=== PATIENT | female | born 1985 ===

== ENCOUNTER 2018-05-22 06:05 | Inpatient (IN) ==
[2018-05-22] MEDS ORDERED: FAMOTIDINE 20 MG/2 ML VIAL IV ONE (06:17)
[2018-05-22] MEDS ORDERED: CITRIC ACID/SODIUM CITRATE 30 ML UDCUP PO ONE (06:17)
[2018-05-22] MEDS ORDERED: ceFAZolin 2,000 MG in PREMIX 1 EACH IV ONE (06:17)
[2018-05-22 06:33] LABS: Basophils % 0.2 % (0.0-0.8); Eosinophils # 0.1 10*3/uL (0.0-0.87); Eosinophils % 0.9 % (0.00-10.9); Hematocrit 37.2 VOL% (35.7-47.0); Hemoglobin 11.7 GM/DL (12.0-16.0); Immature Granulocytes % 0.6 %; Immature Granulocytes Absolute 0.03 #; Lymphocytes # 1.5 10*3/uL (1.4-4.0); Lymphocytes % 27.8 % (21.3-54.2); Mean Corpuscular HGB Conc 31.5 GM/DL (32-36); Mean Corpuscular Hemoglobin 29 PG (27-34); Mean Platelet Volume 10.3 FL (9.6-12.0); Monocytes # 0.6 10*3/uL (0.11-0.8); Neutrophils # 3.2 10*3/uL (1.4-7.4); Neutrophils % 59.5 % (38.7-73.9); Platelet Count 236 T/CUMM (130-400); Red Blood Count 4.09 MC/CUMM (3.8-5.5); Red Cell Distribution Width 14.6 % (9.3-17.3); White Blood Count 5.3 T/CUMM (4-12)
[2018-05-22] MEDS: LACTATED RINGERS 1,000 ML IV SCH ×2 (07:01→08:26)
[2018-05-22] MEDS ORDERED: OXYTOCIN 10 UNIT/ML VIAL IM ONE (07:05)
[2018-05-22] MEDS ORDERED: OXYTOCIN/LR 30 UNIT/1,000 ML BAG IV ONE (07:05)
[2018-05-22] MEDS ORDERED: ACETAMINOPHEN 325 MG TABLET PO PRN (10:41)
[2018-05-22] MEDS ORDERED: SIMETHICONE CHEW 80 MG TABLET PO PRN (10:41)
[2018-05-22] MEDS ORDERED: RHO(D) IMMUNE GLOBULIN 300 MCG SYRINGE IM ONE (10:41)
[2018-05-22] MEDS ORDERED: ONDANSETRON 4 MG/2 ML VIAL IV PRN (10:41)
[2018-05-22] MEDS ORDERED: DEXTROSE 50% 25 GM/50 ML VIAL IV PRN ×3 (10:41→18:35)
[2018-05-22] MEDS ORDERED: GLUCAGON 1 MG VIAL IM PRN ×3 (10:41→18:35)
[2018-05-22] MEDS ORDERED: OXYTOCIN/LR 20 UNIT/1,000 ML BAG IV ONE (10:41)
[2018-05-22] MEDS ORDERED: fentaNYL 100 MCG/2 ML VIAL ONE (10:46)
[2018-05-22] MEDS ORDERED: MORPHINE 10 MG/10 ML VIAL ONE (10:46)
[2018-05-22] MEDS ORDERED: PHENYLEPHRINE 1 MG/10 ML SYRINGE IV ONE (10:48)
[2018-05-22] MEDS ORDERED: BUPIVACAINE SPINAL 0.75% 2 ML AMP SPINAL ONE (10:49)
[2018-05-22] MEDS ORDERED: MIDAZOLAM 2 MG/2 ML VIAL ONE (10:49)
[2018-05-22 10:55] LABS: Cord Venous Blood PCO2 32.5 MMHG; Cord Venous Blood PO2 32.7 MMHG
[2018-05-22] MEDS ORDERED: LACTATED RINGERS 1,000 ML IV SCH (11:00)
[2018-05-22 11:06] LABS: Apearance,Urine CLEAR (Clear); Bacteria,Urine Occasional /HPF (Few); Bilirubin,Urine Negative (Negative); Blood, Urine Negative (Negative); Glucose,Urine (UA) Negative (Negative); Ketones,Urine Negative (Negative); Mucus,Urine Occasional /LPF (Occasional); Nitrite,Urine Negative (Negative); Protein,Urine Negative; RBC,Urine 1 /HPF (0-4); Squamous Epithelial Cell,Urine Occasional /HPF (0-10); Urine Color Yellow (Yellow); Urine Specific Gravity 1.006 (1.001-1.035); WBC,Urine <1 /HPF (0-6)
[2018-05-22] MEDS ORDERED: HYDROmorphone 2 MG/1 ML VIAL IV PRN (12:55)
[2018-05-22] MEDS ORDERED: SODIUM CHLORIDE 0.9% 50 ML IV ONE (16:39)
[2018-05-22] MEDS: ceFAZolin 1,000 MG in SYRINGE 1 EACH IV SCH (16:46)
[2018-05-22 18:21] LABS: Basophils % 0.2 % (0.0-0.8); Eosinophils % 0.5 % (0.00-10.9); Hemoglobin 8.9 GM/DL (12.0-16.0); Immature Granulocytes % 0.5 %; Immature Granulocytes Absolute 0.04 #; Lymphocytes # 1.9 10*3/uL (1.4-4.0); Lymphocytes % 21.8 % (21.3-54.2); Mean Corpuscular HGB Conc 31.8 GM/DL (32-36); Mean Corpuscular Hemoglobin 29 PG (27-34); Mean Corpuscular Volume 90.6 FL (87-102); Mean Platelet Volume 10.3 FL (9.6-12.0); Monocytes # 0.8 10*3/uL (0.11-0.8); Monocytes % 8.5 % (1.7-12.7); Neutrophils # 6.1 10*3/uL (1.4-7.4); Neutrophils % 68.5 % (38.7-73.9); Platelet Count 182 T/CUMM (130-400); Red Blood Count 3.09 MC/CUMM (3.8-5.5); Red Cell Distribution Width 14.5 % (9.3-17.3); White Blood Count 8.9 T/CUMM (4-12)
[2018-05-22] MEDS: DOCUSATE SODIUM 100 MG CAPSULE PO SCH (20:57)
[2018-05-22] MEDS: FERROUS SULFATE 325 MG TABLET PO SCH (20:57)
[2018-05-23] MEDS: ceFAZolin 1,000 MG in SYRINGE 1 EACH IV SCH (01:19)
[2018-05-23] MEDS: IBUPROFEN 800 MG TABLET PO PRN (01:26)
[2018-05-23 07:37] LABS: Basophils % 0.1 % (0.0-0.8); Eosinophils # 0.1 10*3/uL (0.0-0.87); Eosinophils % 0.8 % (0.00-10.9); Hematocrit 26.3 VOL% (35.7-47.0); Hemoglobin 8.4 GM/DL (12.0-16.0); Immature Granulocytes % 0.4 %; Immature Granulocytes Absolute 0.03 #; Lymphocytes # 1.4 10*3/uL (1.4-4.0); Lymphocytes % 18.1 % (21.3-54.2); Mean Corpuscular HGB Conc 31.9 GM/DL (32-36); Mean Corpuscular Hemoglobin 29 PG (27-34); Mean Corpuscular Volume 89.8 FL (87-102); Mean Platelet Volume 10.4 FL (9.6-12.0); Monocytes # 0.8 10*3/uL (0.11-0.8); Monocytes % 10.2 % (1.7-12.7); Neutrophils # 5.2 10*3/uL (1.4-7.4); Neutrophils % 70.4 % (38.7-73.9); Platelet Count 155 T/CUMM (130-400); Red Blood Count 2.93 MC/CUMM (3.8-5.5); Red Cell Distribution Width 14.4 % (9.3-17.3); White Blood Count 7.4 T/CUMM (4-12)
[2018-05-23] MEDS: METOCLOPRAMIDE 10 MG TABLET PO SCH ×2 (08:52→15:54)
[2018-05-23] MEDS: MULTIVITAMIN (PRENATAL) TABLET PO SCH (08:53)
[2018-05-23] MEDS: FERROUS SULFATE 325 MG TABLET PO SCH ×2 (08:53→20:07)
[2018-05-23] MEDS: DOCUSATE SODIUM 100 MG CAPSULE PO SCH ×2 (08:53→20:08)
[2018-05-23] MEDS: MAGNESIUM HYDROXIDE SUSP 30 ML UDCUP PO PRN (20:07)
[2018-05-23] MEDS ORDERED: BISACODYL 10 MG SUPP RECTAL PRN (21:53)
[2018-05-24] MEDS: METOCLOPRAMIDE 10 MG TABLET PO SCH ×2 (00:14→09:16)
[2018-05-24] MEDS: IBUPROFEN 800 MG TABLET PO PRN (01:59)
[2018-05-24 07:47] VITALS: BP 104/62
[2018-05-24] MEDS ORDERED: DIPH/TET/ACEL PERT BOOSTER VACCINE 0.5 ML VIAL IM ONE (08:12)
[2018-05-24] MEDS: MULTIVITAMIN (PRENATAL) TABLET PO SCH (09:16)
[2018-05-24] MEDS: DOCUSATE SODIUM 100 MG CAPSULE PO SCH (09:16)
[2018-05-24] MEDS: MAGNESIUM HYDROXIDE SUSP 30 ML UDCUP PO PRN (09:16)
[2018-05-24] MEDS: FERROUS SULFATE 325 MG TABLET PO SCH (09:16)
== END 2018-05-24 13:00 | disposition home or self-care (01) | DRG 788 ==
LOC: N.LD 06:05 → N.OB 14:37
PROVIDERS: ADMIT Obstetrics & Gynecology; ATTEND Obstetrics & Gynecology
PROC: LDCSECT (ICD-10-PCS; 2018-05-22 09:00)

== ENCOUNTER 2020-11-24 00:06 | Inpatient (IN) ==
[2020-11-24 00:43] LABS: Bilirubin,Urine Negative (Negative); Blood, Urine Negative (Negative); Glucose,Urine (UA) Negative (Negative); Ketones,Urine Negative (Negative); Mucus,Urine Occasional /LPF (Occasional); Nitrite,Urine Negative (Negative); Protein,Urine Negative; RBC,Urine 1 /HPF (0-4); Squamous Epithelial Cell,Urine Occasional /HPF (0-10); Urine Appearance CLEAR (Clear); Urine Color Straw (Yellow); Urine Specific Gravity 1.006 (1.001-1.035); Urine Urobilinogen < 2.0 EU/DL (0.2-1.0)
[2020-11-24] MEDS: LACTATED RINGERS 1,000 ML IV SCH ×2 (01:37→10:48)
[2020-11-24] MEDS ORDERED: BUTORPHANOL 2 MG/ML VIAL ONE (01:52)
[2020-11-24] MEDS ORDERED: ONDANSETRON 4 MG/2 ML VIAL IV PRN ×2 (01:52→10:41)
[2020-11-24 01:54] LABS: Basophils % 0.1 % (0.0-0.8); Eosinophils # 0.1 10*3/uL (0.0-0.87); Eosinophils % 0.7 % (0.00-10.9); Hematocrit 36.7 VOL% (35.7-47.0); Hemoglobin 11.5 GM/DL (12.0-16.0); Immature Granulocytes % 0.5 %; Immature Granulocytes Absolute 0.04 #; Lymphocytes # 1.9 10*3/uL (1.4-4.0); Lymphocytes % 25.8 % (21.3-54.2); Mean Corpuscular HGB Conc 31.3 GM/DL (32-36); Mean Corpuscular Volume 89.3 FL (87-102); Mean Platelet Volume 10.9 FL (9.6-12.0); Monocytes % 10.3 % (1.7-12.7); Neutrophils % 62.6 % (38.7-73.9); Platelet Count 212 T/CUMM (130-400); Red Blood Count 4.11 MC/CUMM (3.8-5.5); Red Cell Distribution Width 14.3 % (9.3-17.3); White Blood Count 7.3 T/CUMM (4-12)
[2020-11-24] MEDS: BUTORPHANOL 2 MG/ML VIAL IV PRN ×2 (01:58→06:37)
[2020-11-24 02:05] LABS: INR 0.9; PT Patient Result 10.1 SECS (10.5-12.0); Partial Thromboplastin Time 25.6 SECS (23.9-33.8)
[2020-11-24 02:24] LABS: Alanine Aminotransferase < 9 U/L (13-56); Albumin 2.7 G/DL (3.4-5.0); Alkaline Phosphatase 389 U/L (45-117); Aspartate Amino Transferase 14 U/L (0-37); Blood Urea Nitrogen 10 MG/DL (7-18); Calcium 9.1 MG/DL (8.5-10.1); Carbon Dioxide 21 MMOL/L (21-32); Estimated Glom Filtration Rate 122 ML/MIN; Glucose 101 MG/DL (74-106); Osmolality,Calculated 275.5 MOS/KG (273-304); Potassium 4.1 MMOL/L (3.5-5.1); Sodium 139 MMOL/L (136-145); Total Protein 7.1 G/DL (6.4-8.2)
[2020-11-24] MEDS ORDERED: ALUMINUM/MAGNES/SIMETH MAX STR 30 ML UDCUP PO ONE (06:39)
[2020-11-24] MEDS ORDERED: OXYTOCIN/LR 30 UNIT/1,000 ML BAG IV ONE (07:38)
[2020-11-24] MEDS ORDERED: OXYTOCIN 10 UNIT/ML VIAL IM ONE (07:39)
[2020-11-24] MEDS ORDERED: CITRIC ACID/SODIUM CITRATE 30 ML UDCUP PO ONE ×2 (07:57→10:00)
[2020-11-24] MEDS ORDERED: FAMOTIDINE 20 MG/2 ML VIAL IV ONE ×2 (07:57→10:00)
[2020-11-24] MEDS ORDERED: ceFAZolin 2,000 MG/50 ML DUPLEX IV ONE ×2 (07:57→10:00)
[2020-11-24] MEDS ORDERED: TRANEXAMIC ACID 1,000 MG/10 ML VIAL ONE (08:16)
[2020-11-24] MEDS ORDERED: miSOPROStoL 200 MCG TABLET ONE (08:16)
[2020-11-24] MEDS ORDERED: METHYLERGONOVINE 0.2 MG/1 ML AMP ONE (08:18)
[2020-11-24] MEDS ORDERED: CARBOPROST TROMETHAMINE 250 MCG/ML AMP IM ONE (08:18)
[2020-11-24] MEDS ORDERED: SODIUM CHLORIDE 0.9% 0 ML IV ONE (08:18)
[2020-11-24] MEDS ORDERED: BUPIVACAINE SPINAL 0.75% 2 ML AMP SPINAL ONE (08:58)
[2020-11-24 10:23] LABS: Cord Arterial Blood HCO3 13.8 MMOL/L
[2020-11-24 10:26] LABS: Cord Venous Blood HCO3 16.1 MMOL/L; Cord Venous Blood PCO2 53.2 MMHG; Cord Venous Blood PO2 18.9
[2020-11-24] MEDS ORDERED: ePHEDrine 50 MG/ML VIAL ONE (10:26)
[2020-11-24] MEDS ORDERED: ONDANSETRON 4 MG/2 ML VIAL ONE (10:27)
[2020-11-24] MEDS ORDERED: METOCLOPRAMIDE 10 MG/2 ML VIAL ONE (10:27)
[2020-11-24] MEDS ORDERED: LACTATED RINGERS 2,000 ML IV ONE (10:27)
[2020-11-24 10:30] LABS: Bilirubin,Urine Negative (Negative); Blood, Urine Negative (Negative); Glucose,Urine (UA) Negative (Negative); Ketones,Urine Negative (Negative); Mucus,Urine Occasional /LPF (Occasional); Nitrite,Urine Negative (Negative); Protein,Urine Negative; Urine Appearance CLEAR (Clear); Urine Color Straw (Yellow); Urine Specific Gravity 1.006 (1.001-1.035); Urine Urobilinogen < 2.0 EU/DL (0.2-1.0)
[2020-11-24] MEDS ORDERED: MAGNESIUM HYDROXIDE SUSP 30 ML UDCUP PO PRN (10:41)
[2020-11-24] MEDS ORDERED: OXYTOCIN/LR 20 UNIT/1,000 ML BAG IV ONE (10:41)
[2020-11-24] MEDS ORDERED: GLUCAGON 1 MG VIAL IM PRN ×2 (10:41→11:49)
[2020-11-24] MEDS ORDERED: ACETAMINOPHEN 325 MG TABLET PO PRN (10:41)
[2020-11-24] MEDS ORDERED: RHO(D) IMMUNE GLOBULIN 300 MCG SYRINGE IM ONE (10:41)
[2020-11-24] MEDS ORDERED: DEXTROSE 50% 25 GM/50 ML VIAL IV PRN ×2 (10:41→11:49)
[2020-11-24] MEDS ORDERED: LACTATED RINGERS 1,000 ML IV SCH (11:00)
[2020-11-24] MEDS: INSULIN REGULAR 100 UNIT/ML SUBCUT SCH ×2 (13:18→18:50)
[2020-11-24] MEDS: ACETAMINOPHEN 500 MG TABLET PO SCH ×2 (13:30→18:27)
[2020-11-24] MEDS ORDERED: KETOROLAC 30 MG/1 ML VIAL IV SCH (14:00)
[2020-11-24] MEDS: SIMETHICONE CHEW 80 MG TABLET PO PRN (15:55)
[2020-11-24] MEDS: KETOROLAC 30 MG/1 ML VIAL IV SCH ×2 (16:00→21:34)
[2020-11-24 18:19] LABS: Basophils % 0.2 % (0.0-0.8); Eosinophils % 0.1 % (0.00-10.9); Hemoglobin 8.4 GM/DL (12.0-16.0); Immature Granulocytes % 0.6 %; Immature Granulocytes Absolute 0.05 #; Lymphocytes # 1.4 10*3/uL (1.4-4.0); Lymphocytes % 15.7 % (21.3-54.2); Mean Corpuscular HGB Conc 31.1 GM/DL (32-36); Mean Corpuscular Volume 87.9 FL (87-102); Mean Platelet Volume 10.4 FL (9.6-12.0); Monocytes % 8.5 % (1.7-12.7); Neutrophils % 74.9 % (38.7-73.9); Platelet Count 162 T/CUMM (130-400); Red Blood Count 3.07 MC/CUMM (3.8-5.5); Red Cell Distribution Width 14.3 % (9.3-17.3)
[2020-11-24] MEDS: FLUTICASONE 50 MCG NASAL SPRAY 16 GM BOTTLE BOTH NARES SCH ×2 (21:03→22:35)
[2020-11-24] MEDS: DOCUSATE SODIUM 100 MG CAPSULE PO SCH (21:03)
[2020-11-24] MEDS: FERROUS SULFATE 325 MG TABLET PO SCH (21:03)
[2020-11-25] MEDS ORDERED: KETOROLAC 30 MG/1 ML VIAL IV ONE (03:58)
[2020-11-25] MEDS: ACETAMINOPHEN 500 MG TABLET PO SCH (04:13)
[2020-11-25] MEDS: IBUPROFEN 800 MG TABLET PO PRN ×2 (04:15→16:54)
[2020-11-25 05:46] LABS: Basophils % 0.3 % (0.0-0.8); Eosinophils % 0.4 % (0.00-10.9); Hemoglobin 7.8 GM/DL (12.0-16.0); Immature Granulocytes % 0.7 %; Immature Granulocytes Absolute 0.05 #; Lymphocytes # 1.3 10*3/uL (1.4-4.0); Lymphocytes % 17.6 % (21.3-54.2); Mean Corpuscular HGB Conc 31.2 GM/DL (32-36); Mean Corpuscular Volume 88.3 FL (87-102); Mean Platelet Volume 10.9 FL (9.6-12.0); Monocytes % 11.8 % (1.7-12.7); Neutrophils % 69.2 % (38.7-73.9); Platelet Count 160 T/CUMM (130-400); Red Blood Count 2.83 MC/CUMM (3.8-5.5); Red Cell Distribution Width 14.3 % (9.3-17.3); White Blood Count 7.6 T/CUMM (4-12)
[2020-11-25] MEDS: INSULIN REGULAR 100 UNIT/ML SUBCUT SCH ×5 (06:39→22:43)
[2020-11-25] MEDS: SIMETHICONE CHEW 80 MG TABLET PO PRN (09:53)
[2020-11-25] MEDS: MULTIVITAMIN (PRENATAL) TABLET PO SCH (09:53)
[2020-11-25] MEDS: DOCUSATE SODIUM 100 MG CAPSULE PO SCH ×2 (09:53→22:05)
[2020-11-25] MEDS: FERROUS SULFATE 325 MG TABLET PO SCH ×3 (09:54→22:05)
[2020-11-25] MEDS: METOCLOPRAMIDE 10 MG TABLET PO SCH ×2 (09:54→16:49)
[2020-11-25] MEDS: FLUTICASONE 50 MCG NASAL SPRAY 16 GM BOTTLE BOTH NARES SCH ×2 (10:01→22:07)
[2020-11-25 11:00] LABS: Hematocrit 28.4 VOL% (35.7-47.0); Hemoglobin 8.9 GM/DL (12.0-16.0)
[2020-11-26] MEDS: METOCLOPRAMIDE 10 MG TABLET PO SCH ×2 (00:52→08:45)
[2020-11-26] MEDS: IBUPROFEN 800 MG TABLET PO PRN ×2 (02:59→10:43)
[2020-11-26] MEDS: SIMETHICONE CHEW 80 MG TABLET PO PRN (03:02)
[2020-11-26] MEDS: DOCUSATE SODIUM 100 MG CAPSULE PO SCH (08:45)
[2020-11-26] MEDS: MULTIVITAMIN (PRENATAL) TABLET PO SCH (08:45)
[2020-11-26] MEDS: FERROUS SULFATE 325 MG TABLET PO SCH (08:46)
[2020-11-26] MEDS: FLUTICASONE 50 MCG NASAL SPRAY 16 GM BOTTLE BOTH NARES SCH (09:15)
[2020-11-26] MEDS: INSULIN REGULAR 100 UNIT/ML SUBCUT SCH (09:15)
[2020-11-26] MEDS ORDERED: DIPH/TET/ACEL PERT BOOSTER VACCINE 0.5 ML VIAL IM ONE (11:07)
[2020-11-26 11:59] VITALS: BP 148/89
== END 2020-11-26 13:25 | disposition home or self-care (01) | DRG 540 ==
LOC: N.LD 00:06 → N.OB 14:28
PROVIDERS: ADMIT Obstetrics & Gynecology; ATTEND Obstetrics & Gynecology
PROC: LDCSECT (ICD-10-PCS; 2020-11-24 09:35)

== ENCOUNTER 2021-01-10 21:29 | Observation (INO) ==
[2021-01-10] MEDS ORDERED: MORPHINE 2 MG/1 ML SYRINGE IV STA (23:06)
[2021-01-10] MEDS ORDERED: ACETAMINOPHEN 325 MG TABLET PO PRN (23:09)
[2021-01-10] MEDS ORDERED: ONDANSETRON 4 MG/2 ML VIAL ONE (23:09)
[2021-01-10] MEDS ORDERED: HYDROmorphone 2 MG/1 ML VIAL IV PRN (23:09)
[2021-01-10] MEDS ORDERED: ONDANSETRON 4 MG/2 ML VIAL IV PRN (23:09)
[2021-01-11] MEDS ORDERED: SODIUM CHLORIDE 0.9% 0 ML IV ONE (01:05)
[2021-01-11] MEDS ORDERED: PIPERACILLIN/TAZOBACTAM 3,375 MG VIAL IV ONE (01:05)
[2021-01-11] MEDS: LACTATED RINGERS 1,000 ML IV SCH ×4 (03:28→16:20)
[2021-01-11] MEDS ORDERED: MIDAZOLAM 2 MG/2 ML VIAL ONE (07:56)
[2021-01-11] MEDS ORDERED: ONDANSETRON 4 MG/2 ML VIAL ONE (07:56)
[2021-01-11] MEDS ORDERED: LIDOCAINE 1%/EPI INJ 20 ML VIAL ONE (08:03)
[2021-01-11] MEDS ORDERED: BUPIVACAINE MPF 0.25% 30 ML VIAL ONE (08:03)
[2021-01-11] MEDS ORDERED: TISSUE ADHESIVE 1 EACH APPLICATOR TOP ONE (08:03)
[2021-01-11] MEDS ORDERED: fentaNYL 100 MCG/2 ML VIAL ONE (08:10)
[2021-01-11] MEDS ORDERED: SUCCINYLCHOLINE 200 MG/10 ML VIAL ONE (08:10)
[2021-01-11] MEDS ORDERED: LIDOCAINE 2% 5 ML VIAL ONE (08:10)
[2021-01-11] MEDS ORDERED: ROCURONIUM 50 MG/5 ML VIAL IV ONE (08:10)
[2021-01-11] MEDS ORDERED: propofoL 200 MG/20 ML VIAL IV ONE (08:10)
[2021-01-11] MEDS ORDERED: SEVOFLURANE 1 UNIT/15 MINUTE INH ONE ×3 (08:14→09:51)
[2021-01-11] MEDS: PANTOPRAZOLE 40 MG TABLET PO SCH (08:20)
[2021-01-11] MEDS ORDERED: DEXAMETHASONE 4 MG/1 ML VIAL ONE (08:33)
[2021-01-11] MEDS ORDERED: KETOROLAC 30 MG/1 ML VIAL ONE (08:33)
[2021-01-11] MEDS ORDERED: ACETAMINOPHEN INJ 1,000 MG/100 ML VIAL IV ONE (08:33)
[2021-01-11] MEDS ORDERED: NEOSTIGMINE 10 MG/10 ML VIAL ONE (08:51)
[2021-01-11] MEDS ORDERED: GLYCOPYRROLATE 0.4 MG/2 ML VIAL ONE (08:51)
[2021-01-11] MEDS ORDERED: LACTATED RINGERS 1,000 ML IV ONE (09:08)
[2021-01-11] MEDS ORDERED: KETOROLAC 15 MG/1 ML VIAL IV PRN (09:16)
[2021-01-11] MEDS ORDERED: HYDROmorphone 2 MG/1 ML VIAL IV PRN (09:16)
[2021-01-11] MEDS ORDERED: BISACODYL 5 MG TABLET PO PRN (09:16)
[2021-01-11] MEDS ORDERED: ALBUTEROL/IPRATROPIUM 3 ML NEB RESP TX PRN (09:16)
[2021-01-11] MEDS ORDERED: ONDANSETRON 4 MG/2 ML VIAL IV PRN ×2 (09:16→09:48)
[2021-01-11] MEDS: HYDROmorphone 2 MG/1 ML VIAL IV PRN ×2 (09:49→09:59)
[2021-01-11] MEDS: oxyCODONE/ACETAMINOPHEN 5-325 MG TABLET PO PRN ×2 (13:10→19:23)
[2021-01-11] MEDS: PIPERACILLIN/TAZOBACTAM 3,375 MG in SODIUM CHLORIDE 0.9% 100 ML IV SCH ×2 (13:13→22:47)
[2021-01-12 05:24] LABS: Basophils % 0.1 % (0.0-0.8); Eosinophils % 0.1 % (0.00-10.9); Hematocrit 34.4 VOL% (35.7-47.0); Hemoglobin 10.6 GM/DL (12.0-16.0); Immature Granulocytes % 0.3 %; Immature Granulocytes Absolute 0.03 #; Lymphocytes % 11.3 % (21.3-54.2); Mean Corpuscular HGB Conc 30.8 GM/DL (32-36); Mean Corpuscular Volume 87.8 FL (87-102); Neutrophils % 80.2 % (38.7-73.9); Platelet Count 218 T/CUMM (130-400); Red Blood Count 3.92 MC/CUMM (3.8-5.5); Red Cell Distribution Width 15.7 % (9.3-17.3); White Blood Count 8.8 T/CUMM (4-12)
[2021-01-12] MEDS: LACTATED RINGERS 1,000 ML IV SCH ×2 (05:39→12:15)
[2021-01-12] MEDS: PIPERACILLIN/TAZOBACTAM 3,375 MG in SODIUM CHLORIDE 0.9% 100 ML IV SCH ×2 (05:39→12:50)
[2021-01-12] MEDS: oxyCODONE/ACETAMINOPHEN 5-325 MG TABLET PO PRN ×2 (05:44→12:33)
[2021-01-12 05:49] LABS: Calcium 8.3 MG/DL (8.5-10.1); Osmolality,Calculated 281.4 MOS/KG (273-304); Potassium 3.7 MMOL/L (3.5-5.1)
[2021-01-12] MEDS: PANTOPRAZOLE 40 MG TABLET PO SCH (08:32)
[2021-01-12 11:54] VITALS: BP 127/77
== END 2021-01-12 17:00 | disposition home or self-care (01) ==
LOC: EDUNIT# → EDBD → N.ED 21:29 → N.EDINP 21:29 → N.3E 01-11 02:35
PROVIDERS: ADMIT Surgery; ATTEND Surgery